=== PATIENT | male | born 1940 | race Caucasian/White ===

== ENCOUNTER 2019-04-22 11:56 | Inpatient (IN) | payer MEDICARE ==
[~2019-04-22 11:56] MED LIST: BETAPACE 80 MG80 MG PO; HYDROCHLOROTHIA25 MG PO; LIPITOR10 MG PO; ZESTORETIC 10/11 TAB PO
--- NOTE | 2019-04-22 13:03 | NUR ---
PT MARK. ALERT/OREINTEDX4. UP AD MARIELA, WITHOUT COMPLICATION. AT BEDSIDE. PATIENT REQUESTS TO ONLY TAKE HIS OWN MEDICATION WHILE HE'S HERE.
[2019-04-22 13:12] LABS: BASOPHILS 0.2 % (0-2); EOSINOPHILS 0.9 % (0-7); HEMATOCRIT 45.4 % (42.0-54.0); HEMOGLOBIN 14.6 g/dL (13.5-17.5); IMMATURE GRANULOCYTES 0.2 % (0-5); LYMPHOCYTES 5.4 % (15-50); MCH 30.4 pg (26.0-34.0); MCHC 32.2 g/dL (31.0-37.0); MCV 94.6 fL (80.0-100.0); MEAN PLATELET VOLUME 9.8 fL (7.4-10.4); MONOCYTES 10.1 % (2-11); NEUTROPHILS 83.2 % (40-80); PLATELET COUNT 197 10x3/uL (130-400); WBC 13.8 10x3/uL (4.8-10.8)
[2019-04-22 13:45] LABS: CALC OSMOLALITY 288 mosm/kg (275-300); CALCIUM 8.9 mg/dL (8.5-10.1); CARBON DIOXIDE 32.3 mmol/L (21.0-32.0); CHLORIDE - SERUM 103 mmol/L (98-107); CKMB 1.2 U/L (0.0-3.6); CREATINE KINASE 127 UL (21-232); CREATININE - SERUM 1.5 mg/dL (0.6-1.3); GLUCOSE 141 mg/dL (74-106); POTASSIUM - SERUM 5.1 mmol/L (3.5-5.1); PRO BNP 3336 pg/mL (0-450); SODIUM 142 mmol/L (136-145); TROPONIN-I < 0.017 ng/mL (0.000-0.060); UREA NITROGEN 24 mg/dL (7-18); eGFR NON AFRICAN AMERICAN 48 mL/min (90-120)
--- NOTE | 2019-04-22 16:41 | HP ---
PATIENT: BECKY BRANTLEY MEDICAL RECORD: [id number] ACCOUNT: [id number] LOCATION:[address] : 42 ADMISSION DATE: 04/22/19 PCP: UZMA TOSCANO MD HISTORY AND PHYSICAL EXAMINATION REASON FOR ADMISSION: Shortness of breath, wheezing, and cough. HISTORY OF PRESENT ILLNESS: The patient is a 79-year-old male who just returned from a 2-week [place] sea cruise with his . He said, the day he was leaving [facility], he developed some cough and congestion on the airplane that progressed throughout the weekend after returning home. So, for 3 days, he has had cough, congestion, and feeling short of breath with activity. No chest pain. It became worse yesterday and he came to the office this morning. It was distinct with audible wheezes and O2 sat of 84% on room air. He was placed in the room, given an updraft, placed on O2 at 3 liters, and saturation improved to 95% to 96%. His wheezes did not clear with updraft. He is now being admitted for asthmatic bronchitis, hypoxemia, and rule out pneumonia. 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 Robles; paroxysmal atrial fibrillation; osteoarthritis; carpal tunnel syndrome; BPH; history of acute kidney failure, followed by renal; and long-term use of anticoagulants. PAST SURGICAL HISTORY: Right nephrectomy and PTCA times 2. FAMILY HISTORY: Mother had cancer of the cervix. Father had heart disease and high blood pressure. SOCIAL HISTORY: He quit smoking in 2005, had 45-cxcx-vics history prior to that. Alcohol, rare and socially. He is currently . ALLERGIES: No known drug allergies. CURRENT MEDICATIONS: Hydrochlorothiazide 12.5 mg p.o. q.a.m. p.r.n. edema, glucosamine/chondroitin one capsule daily, aspirin 81 mg a day, sotalol 120 q. 12 hours, lisinopril 20 mg q. 12 hours, atorvastatin 10 mg at bedtime, Cardizem CD 120 capsule p.o. daily, Eliquis 2.5 mg p.o. b.i.d., and Centrum Silver one daily. REVIEW OF SYSTEMS: GENERAL: No fatigue or fever. Just short of breath. HEAD, EYES, EARS, NOSE, AND THROAT: No recent visual change, sinus congestion, or sore throat. RESPIRATORY: Marked cough, productive of clear sputum. He has been short of breath with audible wheezes for the last 3 days, worse today. CARDIAC: No exertional chest pain, claudication, or edema. Plus JEAN. GASTROINTESTINAL: No dyspepsia, change in stools, or blood per rectum. GENITOURINARY: Nocturia once nightly. ENDOCRINE: Denies polyuria, polydipsia, heat or cold intolerance. NEUROLOGIC: No history of stroke, TIA, vascular headaches, memory loss, or seizures. INTEGUMENT: No rash or itching. HISTORY AND PHYSICAL [id number] BECKY BRANTLEY PHYSICAL EXAMINATION GENERAL: The patient is alert, oriented, and mildly dyspneic. VITAL SIGNS: His O2 sat was 84% on room air. After rest, updrafts, and 3 liters of O2, his sat improved to 95% to 96%. Blood pressure 142/82 with heart rate of 90-100 and irregular. The patient is alert and oriented. His weight is 248 and height is 5 feet 11 inches. HEAD, EYES, EARS, NOSE, AND THROAT: Eyes are clear. Oropharynx is unremarkable. NECK: Supple. CHEST: He has audible wheezes, inspiratory and expiratory bilaterally. No retractions. ABDOMEN: Obese with incisional hernia in the right lower quadrant. GENITOURINARY: Deferred. EXTREMITIES: 2+ bipedal and 1+ pretibial edema of the knees bilaterally. NEUROLOGIC: He is oriented times 3. Cranial nerves are intact. Gait normal. After updraft, wheezes did not clear, especially on the right. LABORATORY DATA AND DIAGNOSTIC DATA: Chest x-ray and lab are pending. ASSESSMENT: Acute asthmatic bronchitis with hypoxemia, failing outpatient therapy; history of renal cell carcinoma; CAD; atrial fibrillation; obesity; hyperlipidemia; hypertension; osteoarthritis; and gout. PLAN: The patient is admitted to [facility] for pulmonary toilet, IV steroids, IV antibiotics, and telemetry. Further workup pending clinical course. TRANSINT:[id number] Voice Confirmation ID: [id number] DOCUMENT ID: [id number] UZMA TOSCANO MD at 1641 CC: [id number] DICTATION DATE: 04/22/19 1338 SHAPER HAND: 04/22/19 1447 ADM IN [place] [id number] [place] [id number]
[2019-04-22 17:08] VITALS: BP 141/64
--- NOTE | 2019-04-22 18:00 | NUR ---
I have reviewed this patient and I concur with the Shift Assessment completed by the Licensed Practical Nurse today this shift.
[2019-04-22 18:38] VITALS: BP 141/64
--- NOTE | 2019-04-22 19:23 | NUR ---
RECIEVED UP IN BED WITH EYES OPEN AND TV ON. ALERT AND ORIENTED X4.UP AD MARIELA TO B/R. IV TO LEFT FA WITH NS INFUSING AT 50CC/HR. FREQUENT DRY COUGH. DWNIES ANY NEEDS AT THIS TIME.
[2019-04-22 19:47] LABS: CKMB 1.2 U/L (0.0-3.6); CREATINE KINASE 104 UL (21-232)
[2019-04-22 19:48] LABS: TROPONIN-I < 0.017 ng/mL (0.000-0.060)
[2019-04-22 20:00] VITALS: BP 151/87
[2019-04-23] VITALS (7 sets, daily range): BP systolic 140–188; BP diastolic 63–96; BMI 34.6
[2019-04-23 01:21] LABS: CKMB 0.9 U/L (0.0-3.6); CREATINE KINASE 91 UL (21-232); TROPONIN-I < 0.017 ng/mL (0.000-0.060)
--- NOTE | 2019-04-23 08:23 | NUR ---
ALSEEP AT PRESENT TIME. WILL CONTINUE TO MONITOR.
--- NOTE | 2019-04-23 13:59 | NUR ---
SITTING UP ON SIDE OF BED VISITING WITH . DENIES ANY NEEDS OR PAIN. NO SIGNS OF DISTRESS NOTED. CALL LIGHT WITHIN REACH, FALL PRECAUTIONS IN PLACE. WILL CONTINUE TO MONITOR
[2019-04-23 14:49] LABS: APPEARANCE CLEAR (CLEAR); BILIRUBIN NEGATIVE (NEGATIVE); COLOR YELLOW (YELLOW); GLUCOSE NEGATIVE (NEGATIVE); KETONE NEGATIVE (NEGATIVE); NITRITE NEGATIVE (NEGATIVE); PROTEIN NEGATIVE (NEGATIVE); SPECIFIC GRAVITY 1.015 (1.005-1.020); UROBILINOGEN NORMAL (NORMAL)
--- NOTE | 2019-04-23 19:11 | NUR ---
RECIEVED SITTING UP ON SIDE OF BED EATING A SALAD. ALERT AND ORIENTED X4. UP AD MARIELA TO B/R. IV TO LEFT FA WITH NS AT 50CC/HR. DSG INTACT AND NO REDNESS OR SWELLING TO SITE. LUNG SOUNDS TO RIGHT SIDE HAVE EXPIRATORY WHEEZES AND LEFT SIDE RALES AND RONCHI. ABSX4. NO EDEMA OBSERVED.DENIES ANY PAIN OR DISCOMFORT.
[2019-04-24] VITALS: BP 162/95
[2019-04-24 04:00] VITALS: BP 141/82
[2019-04-24 09:23] VITALS: BP 150/83
[2019-04-24 13:18] VITALS: BP 143/64
--- NOTE | 2019-04-24 13:26 | NUR ---
I have reviewed this patient and I concur with the Shift Assessment completed by the Licensed Practical Nurse today this shift.
--- NOTE | 2019-04-24 19:51 | NUR ---
REPORT RECIEVED AND ROUNDING COMPLETE. PT WAS UP WALKING IN THE HALLWAY WHEN I FIRST GOT TO THE FLOOR, PT LOOKS STEADY ON HIS FEET AND ASKING ABOUT HIS DISCHARGE. AT THE CURRENT TIME PT IS LAYING IN BED RECIEVING A BREATHING TREATMENT. PT IS SHOWING NO S/SX OF DISTRESS. PT HAS CALL LIGHT NEXT TO HIM ON HIS BED. 2 RAILS ARE UP ON BED AND BED IS IN THE LOWEST POSITION.
[2019-04-24 20:00] VITALS: BP 144/78
[2019-04-25] VITALS: BP 144/78
[2019-04-25 04:00] VITALS: BP 178/112
--- NOTE | 2019-04-25 04:01 | NUR ---
I have reviewed this patient and I concur with the Shift Assessment completed by the Licensed Practical Nurse today this shift.
[2019-04-25] MEDS ORDERED: MUCINEX600 MG PO (07:33)
[2019-04-25] MEDS ORDERED: LISINOPRIL10 MG PO (07:33)
[2019-04-25] MEDS ORDERED: IPRAT-ALBUT 0.5-3 ML UPD (07:34)
[2019-04-25] MEDS ORDERED: ELIQUIS2.5 MG PO (07:34)
[2019-04-25] MEDS ORDERED: PATIENT'S OWN MEDICA PO (07:35)
[2019-04-25] MEDS ORDERED: AUGMENTIN 875-11 TAB PO (07:36)
[2019-04-25] MEDS ORDERED: MEDROL DOSE PACK4 MG PO (07:36)
[2019-04-25] MEDS ORDERED: CO Q-10200 MG PO (09:34)
[2019-04-25 09:41] VITALS: BP 167/92
[2019-04-25] MEDS ORDERED: LISINOPRIL-HCT1 EAC4 PO (10:15)
[2019-04-25] MEDS ORDERED: CARDIZEM CD120 MG PO (10:16)
[2019-04-25] MEDS ORDERED: ALBUTEROL SULF8.5 GM INH (10:18)
[2019-04-25] MEDS ORDERED: ASPIRIN81 MG PO (10:20)
--- NOTE | 2019-04-25 10:23 | NUR ---
ADDED AND CALLED IN CARDIZEM 120 ER DAILY AND ALBUTEROL 90MCG INHALER TO YANY/ANJELICA. SPOKE WITH FRANCISCO/PHARMACIST
--- NOTE | 2019-04-25 10:39 | NUR ---
DISCHARGE INSTRUCTION REVIEWED WITH PT AND VERBALIZES UNDERSTANDING WITH NO QUESTIONS. SL REMOVED FROM LEFT FA WITH TIP INTACT. HAS CALLED HIS AND AWAITING HER ARRIVA..
--- NOTE | 2019-04-25 10:51 | NUR ---
LEFT FLOOR AMBULATORY AT HIS [facility]. ALL PERSONAL BELONGINGS WITH HIM. LEFT FACILITY VIA PRIVATE VEHICLE WITH HIS .
--- NOTE | 2019-04-25 13:09 | MORECARE ---
CASE MANAGEMENT DISCHARGE SUMMARY PATIENT: BECKY BRANTLEY UNIT: [id number] ADM DATE: 04/22/19 AGE: 79 : 41 SEX: M ROOM/BED: D.2103 AUTHOR: JAME MALAVE PHYSICIAN: REFERRING PHYSICIAN: UZMA TOSCANO MD DATE OF SERVICE: 04/25/19 Discharge Plan Patient Name: BECKY BRANTLEY Facility: [facility]:[place] : 1940 Planned Disposition: Home Anticipated Discharge Date: 04/25/19 Discharge Date: 04/25/2019 Expected LOS: 3 Initial Reviewer: [email or web address] Initial Review Date: 04/25/2019 Generated: 04/25/19 2:09 pm DCPIA - Discharge Planning Initial Assessment Updated by ISA: Davie Roman on 04/25/19 1:06 pm * Is the patient Alert and Oriented? Yes * How many steps to enter\exit or inside your home? 0-O / 1-I * PCP DR. TOSCANO * Pharmacy [address] * Preadmission Environment Home with Family * ADLs Independent * Equipment Nebulizer * Other Equipment NO MEDICAL EQUIPMENT PROVIDER PREFERENCE, REPORTS DR. TOSCANO SETS UP EVERYTHING * List name and contact numbers for known caregivers / representatives who currently or will assist patient after discharge: CHAZ BRANTLEY, SPOUSE, * Verbal permission to speak to the caregivers and representatives has been obtained from the patient. N/A * Community resources currently utilized None * Please name any agencies selected above. NONE * Additional services required to return to the preadmission environment? No * Can the patient safely return to the preadmission environment? Yes * Has this patient been hospitalized within the prior 30 days at any hospital? No Coverage Notice Reviewer: [email or web address] - Davie Roman Notice Issued Date-Time: 04/25/2019 9:35 Notice Type: IM Discharge Notice Notice Delivered To: Patient Relationship to Patient: Infantry Weapons Crewmember Name: Delivery Method: HAND - Hand Delivered Jennie Days: Prior Verbal Notification: Recipient Understood Notice: Yes Recipient Signature: Yes Med Rec Note Co-signed by Attending: Coverage Notice Comment: Patient Name: BECKY BRANTLEY Page [id number] at 1309 All edits/amendments must be made on the electronic document DICTATION DATE: 04/25/19 1309 SENIOR COST ESTIMATOR: KRYS 04/25/19 1309 RPT#: [id number] DC DATE:04/25/19 STATUS: DIS IN [facility] [address] [place] [address] END OF REPORT
--- NOTE | 2019-04-25 13:19 | MORECARE ---
CASE MANAGEMENT DISCHARGE SUMMARY PATIENT: BECKY BRANTLEY UNIT: [id number] ADM DATE: 04/22/19 AGE: 79 : 41 SEX: M ROOM/BED: D.2100 AUTHOR: FRIEDADOC PHYSICIAN: REFERRING PHYSICIAN: UZMA TOSCANO MD DATE OF SERVICE: 04/25/19 Discharge Plan Patient Name: BECKY BRANTLEY Facility: [facility]:[place] : 1940 Planned Disposition: Home Anticipated Discharge Date: 04/25/19 Discharge Date: 04/25/2019 Expected LOS: 3 Initial Reviewer: [email or web address] Initial Review Date: 04/25/2019 Generated: 04/25/19 2:19 pm Comments DCP- Discharge Planning Updated by [email or web address]: Davie Roman on 04/25/19 12:[address] Patient Name: BECKY BRANTLEY Encounter No: [id number] : 1940 Primary Insurance: MEDICARE A & B Anticipated DC Date: 04-25-2019 Planned Disposition: Home DISCHARGE PLANNING NOTE: CM MET WITH PT IN ROOM TO DISCUSS DISCHARGE PLANNING AND NEEDS. PT REPORTS LIVING AT HOME INDEPENDENTLY WITH HIS . PT HAS A NEBULIZER WITH NO MEDICAL EQUIPMENT PROVIDER PREFERENCE. PT STATES DR. TOSCANO SETS UP EVERYTHING FOR HIM IF NEEDED. PT HAS NO OUTSIDE SERVICES ASSISTING IN THE HOME. CM DISCUSSED AVAILABILITY OF HOME HEALTH, REHAB SERVICES AND MEDICAL EQUIPMENT. PT DENIES DISCHARGE NEEDS, REPORTS HIS WILL PICK HIM UP FOR DISCHARGE HOME. IMPORTANT MESSAGE FROM MEDICARE PROVIDED AND EXPLAINED. MARAH Ramachandran DCPIA - Discharge Planning Initial Assessment Updated by [email or web address]: Davie Roman on 04/25/19 1:06 pm * Is the patient Alert and Oriented? Yes * How many steps to enter\exit or inside your home? 0-O / 1-I * PCP DR. TOSCANO * Pharmacy [address] * Preadmission Environment Home with Family * ADLs Independent * Equipment Nebulizer * Other Equipment NO MEDICAL EQUIPMENT PROVIDER PREFERENCE, REPORTS DR. TOSCANO SETS UP EVERYTHING * List name and contact numbers for known caregivers / representatives who currently or will assist patient after discharge: CHAZ BRANTLEY, SPOUSE, * Verbal permission to speak to the caregivers and representatives has been obtained from the patient. N/A * Community resources currently utilized None * Please name any agencies selected above. NONE * Additional services required to return to the preadmission environment? No * Can the patient safely return to the preadmission environment? Yes * Has this patient been hospitalized within the prior 30 days at any hospital? No Coverage Notice Reviewer: [id number] Thom Roman Notice Issued Date-Time: 04/25/2019 9:35 Notice Type: IM Discharge Notice Notice Delivered To: Patient Relationship to Patient: Manager Intensive Care Name: Delivery Method: HAND - Hand Delivered Jennie Days: Prior Verbal Notification: Recipient Understood Notice: Yes Recipient Signature: Yes Med Rec Note Co-signed by Attending: Coverage Notice Comment: Last DP export: 04/25/19 12:09 p Patient Name: BECKY BRANTLEY Page [phone] at 1319 All edits/amendments must be made on the electronic document DICTATION DATE: 04/25/191317 SWITCHBOARD WIRER: KRYS 04/25/198 RPT#: [id number] DC DATE:04/25/19 STATUS: DIS IN [facility] [address] [place] [address] END OF REPORT
== END 2019-04-25 10:53 | disposition home or self-care (01) | DRG 189 ==
LOC: D.M2 11:56 → D.SDCHOLD 11:56 → D.M2 12:06
PROVIDERS: ADMIT Family Medicine; ATTEND Family Medicine
DX: J96.91 Respiratory failure, unspecified with hypoxia (principal); J20.9 Acute bronchitis, unspecified; J45.909 Unspecified asthma, uncomplicated; I25.10 Atherosclerotic heart disease of native coronary artery without angina pectoris; I48.91 Unspecified atrial fibrillation; E78.5 Hyperlipidemia, unspecified; I10 Essential (primary) hypertension; M19.90 Unspecified osteoarthritis, unspecified site; M10.9 Gout, unspecified; E66.9 Obesity, unspecified; Z68.34 Body mass index [BMI] 34.0-34.9, adult

== ENCOUNTER → 2020-01-09 10:23 | Outpatient (CLI) | payer MEDICARE, OTHER ==
[2019-04-23 09:32] VITALS: BMI 34.6
--- NOTE | ~2020-01-09 | EC ---
PATIENT:BECKY BRANTLEY DATE OF SERVICE: 01/09/20 SEX: M MEDICAL RECORD: [id number] DATE OF : 42 LOCATION:[facility] AGE OF PATIENT: 79 ADMISSION DATE: 01/09/20 REFERRING PHYSICIAN: INTERPRETING PHYSICIAN: CARINE ROBLES MD ECHOCARDIOGRAM REPORT ECHO CHARGES 4 ECHO COMPLETE Date: 01/09/20 CLINICAL DIAGNOSIS: ANGINA/JEAN/SOB/HTN H/O A-FIB/CAD ECHOCARDIOGRAPHIC MEASUREMENTS (adult normal given) AC root (d.<3.7cm) 2.9 cm LV Septum d (<1.2 cm> 1.0 cm Valve Excursion 1.7 cm LV Septum (systole) 1.8 cm Left Atria (s.<4.0cm> 4.7 cm LVPW d(<1.2cm) 1.2 cm RV (d.<2.3cm) 2.7 cm LVPW (sytole) 1.7 cm LV diastole(<5.6CM) 5.5 cm MV E-F(>70mm/sec) cm LV systole 3.6 cm LVOT Diameter 1.8 cm MV exc.(>10mm) cm Est.ejection fraction (50-75%) % DOPPLER: LVIT cm/sec A 97.0 cm/sec E 116 cm/sec LA cm/sec RVSP 43.0 mmHg LVOT 154 cm/sec AOP1/2T m/s Asc. Ao 214 cm/sec RVOT cm/sec RA cm/sec PA cm/sec AV Gradient Peak 18.4 mmHg AV Mean 8.0 mmHg AV Area 2.0 cm MV Gradient Peak 7.2 mmHg MV Mean 2.5 mmHg MV Area cm COMMENTS: OP - HC Billing And Insurance Coordinator: 1 AUGUSTA JESS Data Recovery Planner: 1 Dr. Robles TAPE# PACS Pericardial Effusion N DATE OF SERVICE: ECHOCARDIOGRAM FINDINGS: 1. Left ventricular chamber size is within normal limits. Left ventricular systolic function is normal at 55% to 60%. 2. Left atrium, right atrium, and right ventricle chamber sizes are mildly dilated. Left atrium measures 4.7 cm. 3. Valvular structures: Aortic valve demonstrates aortic sclerosis, but no ECHOCARDIOGRAM REPORT [id number] BECKY BRANTLEY significant aortic stenosis. 4. Doppler interrogation reveals mild mitral regurgitation, mild tricuspid regurgitation, no other valvular insufficiency or stenosis. 5. No evidence of pericardial effusion or left ventricular thrombus. TRANSINT:[id number] Voice Confirmation ID: [id number] DOCUMENT ID: [id number] CARINE ROBLES MD CC: [id number] DICTATION DATE: 01/10/20 1052 HACK SAW OPERATOR: 01/10/20 1351 DEP CLI 01/09/20 [place] [id number] [place] [id number]
--- NOTE | ~2020-01-09 | ST ---
PATIENT:BECKY BRANTLEY MEDICAL RECORD: [id number] SEX: M LOCATION:[facility] ORDER #: ADMISSION DATE: 01/09/20 AGE OF PATIENT: 79 REFERRING PHYSICIAN: INTERPRETING PHYSICIAN: CARINE VALDIVIA MD DATE OF SERVICE: 01/09/2020 INDICATION: Angina, coronary artery disease, shortness of breath, hypertension, hyperlipidemia, abnormal ECG. TECHNIQUE: He was exercised on standard Lexiscan protocol with 33 mCi of sestamibi injected at peak stress, 11 mCi used previously for rest images. FINDINGS: Gated SPECT reveals a preserved ejection fraction at 68% with good wall motioning and thickening and brightening throughout all segments. SPECT imaging Cardiolite was used as myocardial perfusion agent. There is reversibility inferiorly and apically. This includes the basal, mid, apical, inferior segments as well as the apex itself. The degree of reversibility is severe. The amount of myocardium involved is moderate. OVERALL IMPRESSION: This is an intermediate risk abnormal nuclear stress test, reversibility inferiorly suggestive of hemodynamically significant coronary disease. TRANSINT:[id number] Voice Confirmation ID: [id number] DOCUMENT ID: [id number] CARINE VALDIVIA MD CC: UZMA TOSCANO [id number] DICTATION DATE: 01/10/20 1701 EXPERIMENTAL MACHINIST: 01/11/20 1128 DEP CLI 01/09/20 [place] [id number] [place] [address]
[~2020-01-09 10:23] MED LIST changes: +ALBUTEROL SULF8.5 GM INH; +ASPIRIN81 MG PO; +AUGMENTIN 875-11 TAB PO; +CARDIZEM CD120 MG PO; +CO Q-10200 MG PO; +ELIQUIS2.5 MG PO; +IPRAT-ALBUT 0.5-3 ML UPD; +LISINOPRIL-HCT1 EAC4 PO; +LISINOPRIL10 MG PO; +MEDROL DOSE PACK4 MG PO; +MUCINEX600 MG PO; +PATIENT'S OWN MEDICA PO
== END | disposition home or self-care (01) ==
LOC: D.HCCARDIO 10:23
PROVIDERS: ATTEND Internal Medicine Interventional Cardiology
DX: I25.119 Atherosclerotic heart disease of native coronary artery with unspecified angina pectoris (principal)

== ENCOUNTER 2020-01-24 08:13 | Outpatient (CLI) | payer MEDICARE, OTHER ==
[~2020-01-24] VITALS: Ht 180.3 cm; Wt 109.6 kg
--- NOTE | ~2020-01-24 | HEMODYNAMI ---
PATIENT:BECKY BRANTLEY MEDICAL RECORD: [id number] : 42 LOCATION:[facility] ADMISSION DATE: 01/24/20 Generatedon:01/24/202011:01 Patient name: BECKY BRANTLEY Patient #: [id number] SSN: [id number] : 1940 Date of study: 01/24/2020 Page: Of Hemodynamic Procedure Report Patient Data Patient Demographics Procedure consent was obtained First Name: BECKY Gender: Male Last Name: KARON : 1940 Middle Initial: CASSY Age: 79 year(s) Patient #: [id number] Race: SSN: [id number] Additional ID: [id number] Contact details Address: [address] [place] [address] State: [place] City: [place] Zip code: [address] Past Medical History Allergies: No known allergies Admission Admission Data Admission Date: 01/24/2020 Admission Time: 8:13 Arrival Date: 01/24/2020 Arrival Time: 10:00 Admit Source: Other Insurance Payor: Medicare [facility] #: [id number] Height (in.): 70.87 BSA: 2.28 (m2) Height (cm.): 180 BMI: 33.64 (kg/m2) Weight (lbs.): 240.31 Weight (kg.): 109 Lab Results Lab Result Date: 01/24/2020 Lab Result Time: 0:00 Biochemistry Name Units Result Min Max BUN mg/dl 34 --(----)-* 7 18 Creatinine mg/dl 1.9 --(----)-* 0.6 1.3 eGFR ml/min 36 *-(----)-- 90 120 NONAFRICAN CBC Name Units Result Min Max Hemoglobin g/dl 15.4 --(-*--)-- 13.5 17.5 Procedure Procedure Types Cath Procedure Diagnostic Procedure LHC [facility] w/Coronaries Sedation Charges Moderate Sedation up to 15 minutes PCI Procedure Coronary Stent Coronary Stent Initial Coronary Stent Additional Hemochron ACT Test Procedure Description Procedure Date Procedure Date: 01/24/2020 Procedure Start Time: 10:36 Procedure Staff Name Function Chencho Robles MD Performing Physician Shelly Melara RT Monitor Shayy Pathak RT Scrub Maximiliano Trotter RN Nurse Procedure Data Cath Procedure Fluoroscopy Diagnostic fluoroscopy Total fluoroscopy Time: 5.1 time: 5.1 min min Diagnostic fluoroscopy Total fluoroscopy dose: dose: 1074 mGy 1074 mGy Contrast Material Contrast Material Type Amount (ml) Isovue 300 81 Entry Location Entry Primary Successful Side Size Upsize Upsize Entry Closure Succes sful Closure Location (Fr) 1 (Fr) 2 (Fr) Remarks Device Remarks Femoral Right 5 Fr 6 Fr Exoseal artery Short Estimated blood loss: 5 ml Diagnostic catheters Device Type Used For End Catheter Placement MULTIPACK Pigtail 5 Fr LV Angiography catheter MULTIPACK JL 4.0 5Fr Left Coronary catheter Angiography MULTIPACK 3DRC 5Fr Right Coronary catheter Angiography Procedure Complications No complications Procedure Medications Medication Administration Route Dosage 0.9% NaCl I.V. 100 ml/hr Oxygen etCO2 Nasal cannula 2 l/min Heparin Flush Bag added to field 2 bags (1000units/500ml NS) Lidocaine 2% added to field 20 Versed I.V. 2 mg Fentanyl I.V. 100 mcg Heparin Bolus I.V. 4000 units Integrilin (Bolus I.V. 10.2 ml 2mg/ml) Integrilin (Bolus wasted 9.8 ml 2mg/ml) Plavix P.O. 600 mg Hemodynamics Rest BSA: 2.28 (m2) HGB: 15.4 (g/dl) O2 Consumption: Estimated: 258.02 (ml/min) O2 Co nsumption indexed: Estimated:113.17 (ml/min/m) Heart Rate: 66 (bpm) Pressure Samples Time Site Value (mmHg) Purpose Heart Use Rate(bpm) 10:39 LV 30/12,-2 Snapshot 67 Snapshots Pre Cath Intra NCS Post Cath Vital Signs Time Heart Resp SPO2 etCO2 NIBP (mmHg) Rhythm Pain Sedation Rate (ipm) (%) (mmHg) Status Level (bpm) 10:21:32 65 17 99 39.2 129/81(101) A-Fib 0 (11) 10(A) , No pain 10:27:12 63 19 94 0 112/61(98) A-Fib 0 (11) 10(A) , No pain 10:31:15 61 23 94 2.2 105/75(86) A-Fib 0 (11) 10(A) , No pain 10:35:17 66 13 96 31.7 109/75(88) A-Fib 0 (11) 10(A) , No pain 10:39:23 68 16 96 0 93/64(75) A-Fib 0 (11) 9(A) , No pain 10:43:23 75 12 94 11.3 103/70(86) A-Fib 0 (11) 9(A) , No pain 10:47:26 73 11 96 12 98/62(78) A-Fib 0 (11) 9(A) , No pain 10:51:28 76 12 93 25.6 96/69(83) A-Fib 0 (11) 10(A) , No pain 10:55:26 69 16 96 38.5 113/77(97) A-Fib 0 (11) 10(A) , No pain Medications Time Medication Route Dose Verified Delivered Reason Notes Effectiveness by by 10:19:55 0.9% NaCl I.V. 100 Maximiliano Maximiliano for arrhythmia ml/hr Sergo Trotter RN RN 10:20:04 Oxygen etCO2 2 Maximiliano Maximiliano for low 02 sats Nasal l/min Sergo Trotter cannula RN RN 10:20:14 Heparin Flush added 2 Maximiliano Maximiliano for local Bag to bags Sergo Trotter anesthetic (1000units/500ml RN RN NS) 10:20:24 Lidocaine 2% added 20ml Maximiliano Maximiliano for local to vial Lorigan Lorigan anesthetic RN RN 10:37:23 Versed I.V. 2 mg Maximiliano Maximiliano for sedation Sergo Trotter RN RN 10:37:32 Fentanyl I.V. 100 Maximiliano Maximiliano for sedation mcg Sergo Trotter RN RN 10:45:33 Heparin Bolus I.V. 4000 Maximiliano Maximiliano for units Sergo Trotter anticoagulation RN RN 10:46:48 Integrilin I.V. 10.2 Maximiliano Maximiliano for (Bolus 2mg/ml) ml Sergo Trotter antiplatelet RN RN therapy 10:47:50 Integrilin wasted 9.8 Maximiliano Maximiliano to sharp's (Bolus 2mg/ml) ml Sergo Trotter RN RN 10:58:31 Plavix P.O. 600 Maximiliano Viera for mg Sergo Trotter antiplatelet RN RN therapy Procedure Log Time Note 9:35:49 Informed consent obtained and on chart 9:37:29 Arrival Date: 01/24/2020 10:00:00 AM 9:38:11 Admit Source: Other 9:38:13 Insurance Payor : Medicare 9:40:09 Patient Height : 70.87 inches 9:40:17 Patient Weight : 240.31 lbs 9:41:23 Lab Result : eGFR NONAFRICAN 36 ml/min 9:41:23 Lab Result : Hemoglobin 15.4 g/dl 9:41:23 Lab Result : BUN 34 mg/dl 9:41:23 Lab Result : Creatinine 1.9 mg/dl 9:41:28 Diagnostic Cath Status : Elective 9:42:42 ACC Patient presents with Stable Angina CCS Anginal Class 2--Slight limitation of ordinary activity. 9:42:46 ACCPatient has been prescribed/administered the following anti-anginal medication within the last 2 weeks: None 9:42:49 Procedure Status Elective Heart Cath (OP). 9:42:52 Shayy Pathak RT(R) sent for patient. Start room use. 9:42:53 Time tracking: Regular hours (M-F 7:00 - 5:00) 9:42:57 Plan of Care:Hemodynamics will remain stable., Cardiac rhythm will remain stable., Comfort level will be maintained., Respiratory function will remain adequate., Patient/ family verbilizes understanding of procedure., Procedure tolerated without complication., Recovers from procedure without complications.. 9:45:36 Risk of Mortality: 0.3 9:45:41 Risk of blood transfusion: 0.6 9:45:45 Risk of DOV: 3.0 9:46:05 3b) 30-44 Moderately reduced kidney function. 9:46:50 Maximum allowable contrast dose (3.7 X eGFR X 0.75)100 ml. 10:10:34 Patient received from Pre/Post Procedure Room to CCL 2 Alert and oriented. Tansferred to table in Supine position. 10:10:35 Warm blankets applied, and kofi hugger turned on for patient comfort. 10:10:36 Correct patient and procedure confirmed by team. 10:10:36 ECG and BP/O2 sat monitors applied to patient. 10:11:05 H&P Date Dictated: 12/31/2019 Within 30 days and on chart., H&P Addendum completed by physician on day of procedure. (MUST COMPLETE FOR ALL OUTPATIENTS). 10:11:13 Patient allergic to No known allergies 10:12:14 Pre-procedure instructions explained to patient. 10:12:14 Pre-op teaching completed and patient verbalized understanding. 10:12:15 Family in patients room. 10:12:16 Patient NPO since Midnight. 10:12:17 Is the patient allergic to Iodine/contrast media? No. 10:12:18 Is patient on blood thinner?Yes- LAST DOSE ON MONDAY 10:12:22 ACC The patient was administered the following blood thiners within the last 24 hours: Eliquis 10:12:24 Patient diabetic? No. 10:12:26 Previous problem with sedation/anesthesia? No ? 10:12:27 Snore? Yes 10:12:33 Sleep apnea? No 10:12:35 Deviated septum? No 10:12:35 Opens mouth fully? Yes 10:12:36 Sticks out tongue? Yes 10:12:43 Airway obstruction? Yes ASTHMA 10:12:46 Dentures? No ? 10:14:15 Patient pain scale 0/10 ?. 10:14:24 IV patent on arrival in right antecubital with 0.9% NaCl at [facility]. 10:14:32 Lab results completed and on chart. 10:15:06 Pre procedure: right dorsailis pedis pulse 1+ Palpable, but thready & weak; easily obliterated 10:15:09 Modified Yossi's test Ulnar > 7 seconds. 10:15:14 Right groin area was prepped with chlora-prep and draped in sterile fashion 10:15:22 FAILED ALLENS 10:15:23 Alarms reviewed by R. N. 10:15:24 Sharps counted by scrub and verified by R.N. 10:19:55 0.9% NaCl 100 ml/hr I.V. was administered by Maximiliano Trotter RN; for arrhythmia; Verbal order read back and verified. 10:20:04 Oxygen 2 l/min etCO2 Nasal cannula was administered by Maximiliano Trotter RN; for low 02 sats; Verbal order read back and verified. 10:20:14 Heparin Flush Bag (1000units/500ml NS) 2 bags added to field was administered by Maximiliano Trotter RN; for local anesthetic; Verbal order read back and verified. 10:20:24 Lidocaine 2% 20ml vial added to field was administered by Maximiliano Trotter RN; for local anesthetic; Verbal order read back and verified. 10:20:29 Vital chart was started 10:28:33 Baseline sample Acquired. 10:30:42 Physician arrived 10::43 --------ALL STOP TIME OUT------ ::43 Final Timeout: patient, procedure, and site verified with staff and physician. All members of the team are in agreement. 10:30:46 Right groin site verified by team. 10:30:49 Fire Safety Assessment: A--An alcohol-based skin anteseptic being used preoperatively., C--Open oxygen or nitrous oxide is being used., D--An ESU, laser, or fiber-optic light is being used. 10:30:53 Physical assessment completed. ASA score P 2 - A patient with mild systemic disease as per Chencho Robles MD. 10:30:59 Sedation plan: IV Moderate Sedation Medication:Versed, Fentanyl 10:31:14 Use device set Femoral Dx 10:31:15 ACIST Syringe (36218) opened to sterile field. 10:31:15 Bag Decanter (2002) opened to sterile field. 10:31:16 Medline Cath Pack ([id number]) opened to sterile field. 10:31:17 ACIST Hand Control (33343) opened to sterile field. 10:31:18 ACIST Manifold (12426) opened to sterile field. 10:31:18 DIAGNOSTIC Multipack 5Fr catheter set (BR0104) opened to sterile field. 10:31:20 Tegaderm 4 x 4 (1626W) opened to sterile field. 10:31:21 SHEATH 5FR Charlotte (LMS231) opened to sterile field. 10:31:21 TRUDYALD Guide Wire (288-226) opened to sterile field. 10:36:27 Procedure started. 10:36:27 Full Disclosure recording started 10:36:31 Local anesthetic to right femoral artery with Lidocaine 2% by Chencho Robles MD.INITIAL ACCESS ONLY 10:37:23 Versed 2 mg I.V. was administered by Maximiliano Trotter RN; for sedation; Verbal order read back and verified. 10:37:32 Fentanyl 100 mcg I.V. was administered by Maximiliano Trotter RN; for sedation; Verbal order read back and verified. 10:38:19 A 5 Fr sheath was inserted into the Right Femoral artery 10:38:26 A MULTIPACK Pigtail 5 Fr catheter was advanced over the wire and used for LV Angiography. 10:39:27 LV hemodynamics recorded. 10:39:28 LV gram done using MACKAY 10:39:31 Injector settings: Ml/sec: 5, Volume: 15, 10:39:39 EF : 60 % 10:39:44 Catheter removed. 10:39:50 A MULTIPACK JL 4.0 5Fr catheter was advanced over the wire and used for Left Coronary Angiography. 10:40:16 LCA angiography performed. 10:40:19 Injector settings: Ml/sec: 3, Volume: 6, 10:41:23 Catheter removed. 10:41:30 A MULTIPACK 3DRC 5Fr catheter was advanced over the wire and used for Right Coronary Angiography. 10:41:53 SHEATH 6FR Charlotte (KPL855) opened to sterile field. 10:41:54 INFLATOR Merit BasixCompak (CJ0785) opened to sterile field. 10:42:12 RCA angiography performed. 10:42:15 Injector settings: Ml/sec: 3, Volume: 6, 10:42:36 CHOICE PT Extra Support 182cm wire ([id number]) opened to sterile field. 10:42:50 GUIDE 6FR XBLAD 3.5 catheter ([id number]) opened to sterile field. 10:43:05 CHOICE PT Extra Support 182cm wire ([id number]) opened to sterile field. 10:44:02 Catheter removed. 10:44:03 Proceeding to intervention. 10:44:14 Sheath upsized to a 6 Fr Short. 10:44:18 ACC Pre-intervention CONNIE Flow is 3. 10:44:23 Pre PCI Site: [place] mCirc has 90% stenosis. 10:44:29 6 Fr XBLAD 3.5 guide catheter was inserted over the wire 10:44:44 CHOICE PT wire advanced. 10:45:33 Heparin Bolus 4000 units I.V. was administered by Maximiliano Trotter RN; for anticoagulation; Verbal order read back and verified. 10:45:40 First choice pt wire advanced down OM, second choice pt wire advanced down LCX 10:46:48 Integrilin (Bolus 2mg/ml) 10.2 ml I.V. was administered by Maximiliano Trotter RN; for antiplatelet therapy; Verbal order read back and verified. 10:47:19 The DOTTIE RX 2.5 x 15 stent ([id number]) was advanced then removed because of failure to cross lesion 10:47:50 Integrilin (Bolus 2mg/ml) 9.8 ml wasted was administered by Maximiliano Trotter RN; to sharp's; Verbal order read back and verified. 10:47:52 Inflate balloon Inflation number: 1 A EUPHORA 2.5 x 15 Balloon ([id number]) was prepped and advanced across the Mid CX 90, then inflated to 15 STEWART for 0:10 (min:sec) . 10:47:59 Balloon removed over the wire. 10:49:35 Place stent Inflation Number: 2 A DOTTIE RX 2.5 x 15 stent ([id number]) was prepped and advanced across the Mid CX 90. The stent was deployed at 13 STEWART for 0:10 (min:sec) 0. 10:49:49 Stent catheter was removed intact over wire. 10:50:23 choice pt wire removed from LCX 10:51:21 Inflation number: 1 The EUPHORA 2.5 x 15 Balloon ([id number]) was reinflated across the 1st Ob Alyssa 90, to 13 STEWART for 0:10 (min:sec) 0. 10:52:20 Balloon removed over the wire. 10:52:35 Place stent Inflation Number: 2 A DOTTIE RX 2.5 x 08 stent ([id number]) was prepped and advanced across the 1st Ob Alyssa 90. The stent was deployed at 13 STEWART for 0:10 (min:sec) . 10:53:11 Stent catheter was removed intact over wire. 10:53:24 Wire removed. 10:53:24 Guide catheter removed. 10:53:34 EXOSEAL 6Fr (EX600) opened to sterile field. 10:54:34 Sheath removed intact; hemostasis achieved with Exoseal to the Right Femoral artery. 10:54:36 Procedure ended.(Physican Out) 10:54:48 Fluoroscopy time 05.10 minutes. 10:54:57 Fluoroscopy dose: 1074 mGy 10:54:57 Flurop Dose total: 1074 10:55:10 Dose Area Product 11496 mGy/cm. 10:55:46 Contrast amount:Isovue 300 81ml. 10:55:48 Maximum allowable dose exceeded? No. 10:55:55 Sharps counted by scrub and verified by R.N. 10:55:58 Insertion/operative site no bleeding no hematoma. 10:56:31 Post-op/insertion site Right Femoral artery dressed using a 4 x 4 and Tegaderm. 10:56:33 Post Procedure Pulses reassessed and unchanged 10:56:35 Post procedure rhythm: unchanged. 10:56:38 Estimated blood loss: 5 ml 10:56:39 Post procedure instruction explained to patient.Patient verbalizes understanding. 10:56:40 Patient needs reinforcement of post procedure teaching. 10:57:09 Procedure type changed to Cath procedure, Diagnostic procedure, LHC, [facility] w/Coronaries, Sedation Charges, Moderate Sedation up to 15 minutes, PCI procedure, Coronary Stent, Coronary Stent Initial, Coronary Stent Additional, Hemochron ACT Test 10:57:10 Procedure and supply charges have been captured, reviewed, submitted and are correct. 10:57:15 Procedure Complication : No complications 10:57:18 Vital chart was stopped 10:57:21 [facility] Findings: MVD- PCI performed (see procedure note) 10:57:22 Operative report dictated upon procedure completion. 10:57:23 See physician's report for complete and final results. 10:57:33 Report given to Pre/Post Procedure Room. 10:57:35 Patient transfered to Pre/Post Procedure Room with Stretcher. 10:58:12 ACC-PCI Only Patient was given prescriptions, or instructed by Chencho Robles MD to start/continue the following medications upon discharge: Plavix 10:58:13 End room use (Document Last) 10:58:31 Plavix 600 mg P.O. was administered by Maximiliano Trotter RN; for antiplatelet therapy; Verbal order read back and verified. 10:59:11 ACT drawn and resulted at 320 seconds. (normal therapeutic range 180-240 seconds). 11:00:38 End room use (Document Last) 11:01:16 End room use (Document Last) Intervention Summary Intervention Notes Time ActionType Lesion and Equipment Used Action# Pressure Duration Attributes 10:47:19 Discard DOTTIE RX 2.5 x Stent 15 stent ([id number]) 10:47:52 Inflate Mid CX EUPHORA 2.5 x 1 15 00:10 balloon 15 Balloon ([id number]) 10:49:35 Place stent Mid CX DOTTIE RX 2.5 x 2 13 00:10 15 stent ([id number]) 10:51:21 Reinflate 1st Ob Alyssa EUPHORA 2.5 x 1 13 00:10 balloon 15 Balloon ([id number]) 10:52:35 Place stent 1st Ob Alyssa DOTTIE RX 2.5 x 2 13 00:10 08 stent ([id number]) Device Usage Item Name Manufacture Quantity Catalog Number Hospital Part Current M inimal Lot# / Charge Number Stock Stock Serial# Code ACIST Syringe Acist 1 57020 125743 809189 991798 2 0 (32542) Medical Systems Inc Bag Decanter Microtek 1 010298 14272 404291 5 (2001S) Medical Inc. Medline Cath Medline 1 [id number] 963377 26464 838227 5 Pack ([id number]) ACIST Hand Acist 1 09287 447660 750639 542080 5 Control Medical (90293) Systems Inc ACIST Manifold Acist 1 04234 275440 967531 612687 5 (82707) Medical Systems Inc DIAGNOSTIC Cardinal 1 DW0257 222878 65034 502640 3 0 Multipack 5Fr Health catheter set (AW7347) Tegaderm 4 x 4 3M 1 1626W 785349 096562 691081 5 (1626W) SHEATH 5FR Terumo 1 OGX946 260480 945773 822287 5 Charlotte (RFB122) EMERALD Guide Cardinal 1 502-455 238691 282526 645134 5 Wire (502-455) Health MULTIPACK Cardinal 1 387320 5 Pigtail 5 Fr Health catheter MULTIPACK JL Cardinal 1 587017 5 4.0 5Fr Health catheter MULTIPACK 3DRC Cardinal 1 555189 5 5Fr catheter Health SHEATH 6FR Terumo 1 GQD058 666791 996451 646930 4 0 Charlotte (WYU035) INFLATOR Merit Merit 1 KH0793 031133 951134 500059 1 5 [facility] (HW7373) CHOICE PT [place] 2 [id number] 620418 377825 247173 5 Extra Support Scientific 182cm wire ([id number]) GUIDE 6FR Cardinal 1 [id number] 612539 136543 831816 1 0 XBLAD 3.5 Health catheter ([id number]) DOTTIE RX 2.5 x Medtronic 1 [id number] 598411 6863378 246597 5 [id number] 15 stent ([id number]) EUPHORA 2.5 x Medtronic 1 [id number] 307320 626448 584890 5 [id number] 15 Balloon ([id number]) DOTTIE RX 2.5 x Medtronic 1 [id number] 676024 3735877 959371 5 [id number] 08 stent ([id number]) EXOSEAL 6Fr Cardinal 1 EX600 126009 726048 093854 1 0 (EX600) Health Signature Audit [place] Stage Time Signature Unsigned Intra-Procedure 01/24/2020 Shelly Melara 11:00:38 AM RT(R) Intra-Procedure 01/24/2020 Maximiliano 11:01:16 AM Sergo REVELES Intra-Procedure 01/24/2020 Cehncho Robles 11:01:34 AM Signatures Performing Physician : Signature : Chencho Robles MD Date : Time : Monitor : Shelly Melara RT Signature : Date : Time : Nurse : Maximiliano Trotter Signature : RN Date : Time : [facility] [address] [place] [address]
--- NOTE | ~2020-01-24 | OP ---
PATIENT NAME: BECKY BRANTLEY MEDICAL RECORD: [id number] :42 LOCATION:D.CAT ADMISSION DATE: SURGEON: CARINE VALDIVIA MD DATE OF OPERATION: 01/24/2020 DATE OF SERVICE: 01/24/2020 PROCEDURES: 1. PTCA stent left circumflex and first obtuse marginal. 2. Left heart catheterization. 3. Selective coronary angiography. 4. Left ventriculogram. INDICATION: Angina and coronary artery disease. PROCEDURE IN DETAIL: After informed consent was obtained and after detailed explanation risks, benefits as well as alternative therapies, the patient elected to proceed with angiogram and angioplasty. The right radial area was prepped and draped in normal sterile fashion. Right radial artery was cannulated via modified Seldinger technique with placement of 6-Pashto sheath. All catheters exchanged through this sheath. FINDINGS: Left ventriculogram was performed in standard 30-degree MACKAY view, reveals good cardiac wall motion, ejection fraction is 60%. SELECTIVE CORONARY ANGIOGRAPHY: 1. Left anterior descending has mild irregularities, but no flow-limiting stenosis. 2. The left main has no significant disease. 3. Right coronary has no significant disease. 4. Left circumflex has 90% to 95% stenosis in the first obtuse marginal and the circumflex itself. PTCA STENT OF THE LEFT CIRCUMFLEX AND FIRST OBTUSE MARGINAL: The circumflex was addressed with a 2.5 x 15 and the marginal with a 2.5 x 8 both [place] stents. Result was 0% residual stenosis. OVERALL IMPRESSION: Successful percutaneous transluminal coronary angioplasty stent of the left circumflex and first obtuse marginal going from 90% to 95% initial stenosis to 0% residual. TRANSINT:[id number] Voice Confirmation ID: [id number] DOCUMENT ID: [id number] CARINE VALDIVIA MD CC: [id number] DICTATION DATE: 01/24/20 1101 RAISER HELPER: 01/24/[address] [facility] [address] [place] [address]
[2020-01-24] MEDS ORDERED: ADALAT CC90 MG PO (08:33)
[2020-01-24] MEDS ORDERED: LISINOPRIL30 MG PO (08:33)
[2020-01-24] MEDS ORDERED: CATAPRES0.1 MG PO (08:34)
[2020-01-24] MEDS ORDERED: CARDURA4 MG PO (08:35)
[2020-01-24] MEDS ORDERED: CENTRUM MEN'S1 EACH PO (08:35)
[2020-01-24] MEDS ORDERED: GLUCOSAMINE HC500 MG (08:36)
[2020-01-24 08:43] VITALS: BP 140/78; Ht 180.3 cm; Wt 109.6 kg
[2020-01-24 09:05] LABS: BASOPHILS 0.6 % (0-2); EOSINOPHILS 2.8 % (0-7); HEMATOCRIT 47.2 % (42.0-54.0); HEMOGLOBIN 15.4 g/dL (13.5-17.5); IMMATURE GRANULOCYTES 0.5 % (0-5); LYMPHOCYTES 27.3 % (15-50); MCH 30.6 pg (26.0-34.0); MCHC 32.6 g/dL (31.0-37.0); MCV 93.7 fL (80.0-100.0); MEAN PLATELET VOLUME 9.5 fL (7.4-10.4); MONOCYTES 11.8 % (2-11); PLATELET COUNT 183 10x3/uL (130-400); RBC 5.04 10x6/uL (4.20-6.10); RDW 12.6 % (11.5-14.5); WBC 6.4 10x3/uL (4.8-10.8)
[2020-01-24 09:29] LABS: ANION GAP 12.1 mmol/L (8-16); CALCIUM 8.9 mg/dL (8.5-10.1); CARBON DIOXIDE 30.2 mmol/L (21.0-32.0); CHOL - HDL RATIO 3.1 ratio (2.3-4.9); CREATININE - SERUM 1.9 mg/dL (0.6-1.3); LDL-HDL RATIO 1.8 ratio (1.5-3.5); POTASSIUM - SERUM 4.3 mmol/L (3.5-5.1)
[2020-01-24] MEDS ORDERED: PLAVIX75 MG PO (11:11)
--- NOTE | 2020-01-24 11:15 | NUR ---
PT RECEIVED VIA STRETCHER BACK TO ROOM 5 FOR RECOVERY. PT AWAKE BUT VERY DROWSY, PT DENIES PAIN OR DISCOMFORT. IV PATIENT INFUSING VIA L ARM PER ORDERS. PT PLACED ON CARDIAC MONITORS AND O2 VIA NC AT 2L. HR NSR RATE 66, BP 133/80, RR 9, SAT 100. R GROIN SOFT, DRESSING IN PLACE, CDI NO S/S HEMATOMA OR BLEEDING. LEG PINK AND WARM, PEDAL PULSES PALPABLE. PT INSTRUCTED TO KEEP HEAD ON PILLOW AND LEG STRAIGHT, HE VERBALIZED UNDERSTANDING. CALL LIGHT IN REACH, AT BEDSIDE.
--- NOTE | 2020-01-24 11:45 | NUR ---
PT RESTING COMFORTABLY, DENIES PAIN OR NEEDS AT THIS TIME. R GROIN SOFT, DRESSING CDI NO S/S HEMATOMA. VSS. CALL LIGHT IN REACH, AT BS.
--- NOTE | 2020-01-24 12:29 | NUR ---
PT C/O LOWER BACK PAIN FROM LYING FLAT, SMALL PILLOW PLACED UNDER KNEES PER REQUEST. R GROIN SOFT, DRESSING REMAINS CDI NO S/S HEMATOMA OR BLEEDING. HR 63, BP 134/77, RR 13. CALL LIGHT IN REACH. DENIES NEEDS AT THIS TIME. AT BS
--- NOTE | 2020-01-24 13:00 | NUR ---
PT RESTING COMFORTABLY, DENIES PAIN OR NEEDS. R GROIN SOFT, DRESSING CDI NO S/S HEMATOMA OR BLEEDING. VSS. CALL LIGHT IN REACH, REMAINS AT BS
--- NOTE | 2020-01-24 13:26 | NUR ---
DR VALDIVIA AT BS, ORDER RECEIVED TO D/C JOSE. R GROIN SOFT, DRESSING CDI NO S/S HEMATOMA. VSS. AT BS, CALL LIGHT IN REACH.
--- NOTE | 2020-01-24 14:00 | NUR ---
R GROIN SOFT, DRESSING CDI NO S/S HEMATOMA NOTED. HOB ELEVATED, SANDWICH TRAY AND DRINK SERVED. HR 68, BP 138/81, RR 20. CALL LIGHT IN REACH, PT DENIES NEEDS
--- NOTE | 2020-01-24 14:30 | NUR ---
PT SITTING UP WATCHING TV. DENIES PAIN OR DISCOMFORT. PT TOLERATED FOOD W/O NAUSEA. HR 60, BP 127/76. R GROIN SOFT, DRESSING REMAINS CDI NO S/S HEMATOMA NOTED. CALL LIGHT IN REACH, AT BS.
--- NOTE | 2020-01-24 14:50 | NUR ---
DISCHARGE INSTRUCTIONS REVIEWED W PT AND , BOTH VERBALIZED UNDERSTANDING. EXPLAINED IMPORTANCE OF GETTING PLAVIX FILLED AND STARTING TOMORROW. IV REMOVED W CATH INTACT, MONITORS REMOVED. R GROIN SOFT, NO S/S HEMATOMA. PT UP TO DRESS FOR DISCHARGE.
--- NOTE | 2020-01-24 14:55 | NUR ---
PT AMBULATED TO BR, VOIDING W/O DIFFICULITY. 1505 PT DISCHARGED VIA WC TO WAITING IN PRIVATE VEHICLE. PT HAD ALL BELONGINGS AND DISCHARGE PAPERWORK.
== END 2020-01-24 15:05 | disposition home or self-care (01) ==
LOC: D.CATH 08:13
PROVIDERS: ATTEND Internal Medicine Interventional Cardiology
DX: I25.119 Atherosclerotic heart disease of native coronary artery with unspecified angina pectoris (principal); I48.0 Paroxysmal atrial fibrillation; I10 Essential (primary) hypertension; E78.5 Hyperlipidemia, unspecified; R06.09 Other forms of dyspnea
CPT/HCPCS: 93458; C9600; C9601